=== PATIENT | male | born 1945 | race Caucasian/White ===

== ENCOUNTER 2020-05-29 | Inpatient (IN) | payer OTHER ==
[~2020-05-29] VITALS: Ht 180.3 cm; Wt 100.7 kg
--- NOTE | ~2020-05-29 | HC ---
[facility] [place] [address] CONSULTATION Name: JOSEP CRAFT Room #: 355-P [facility] IN M.R.#: [id number] Admission: 05/29/20 Attend Phys: Johanna Beavers Discharge: Date of : 43 Report #: [id number] THIS REPORT FOR: cc: Deepak Kearney,Inocencio Colbert MD ~ DATE OF SERVICE: 05/30/2020 WOUND CARE CONSULTATION PERSONAL PHYSICIAN: Deepak Kearney DO CHIEF COMPLAINT: Right foot wound. HISTORY OF PRESENT ILLNESS: This is a 74-year-old white male who is admitted for recent CVA and atrial fibrillation. Upon admission, the patient was noted to have a right foot wound, which was necrotic. We have been asked to care for this time. The patient himself is a poor historian and recently was diagnosed with COVID-19 pneumonia. The patient has known history of osteomyelitis of the right foot, is currently on IV antibiotics for this. Nursing staff deny any other associated wounds. PAST MEDICAL HISTORY: Significant for COVID-19 pneumonia, atrial fibrillation, chronic ulcer to the right foot with known osteomyelitis, hypertension, diabetes, hyperlipidemia, dementia. CURRENT MEDICATIONS: Multiple, I reviewed the patient's medication list. DRUG ALLERGIES: None. SOCIAL HISTORY: The patient resides in a care facility. FAMILY HISTORY AND REVIEW OF SYSTEMS: Unobtainable because of the patient's altered mental status. PHYSICAL EXAMINATION: VITAL SIGNS: Stable. The patient is afebrile. GENERAL: This is an alert and oriented x 1 person, but not place or time, male who is in no acute distress. HEENT: Normocephalic, atraumatic. Mucous membranes are dry. Pupils are round. Sclerae are white. NECK: Without JVD. LUNGS: Diminished breath sounds heard throughout. HEART: Irregularly irregular. [facility] [address] [place] [address] CONSULTATION Name: JOSEP CRAFT Room #: 355-P [facility] IN M.R.#: [id number] Admission: 05/29/20 Attend Phys: Johanna Beavers Discharge: Date of : 43 Report #: [id number] ABDOMEN: Soft, nontender. EXTREMITIES: The patient moves all extremities without difficulty. Evaluation of right foot reveals a black eschar, which is intact with minimal brownish drainage with mild odor. NEUROLOGIC: Cranial nerves 2-12 grossly intact. Motor and sensory are grossly intact. LABORATORY DATA: White count 6.9, hemoglobin 13.8, albumin 2.0. IMPRESSION: 1. Chronic ulcer, right foot with underlying osteomyelitis. 2. Diabetes mellitus. 3. Protein-calorie malnutrition -- severe with albumin 2.0. 4. Generalized debility. 5. COVID-19 infection. PLAN: At this time, we will start Dakin's wet to dry dressings to the right foot covered with ABD changes daily. We will attempt to maximize the patient's oral protein supplementation for healing. We will utilize physical and occupational therapy as able. This patient is able to for strengthening. We will continue all his other current medications at this time. By: 1050 50 Inocencio Benito MD /nt
--- NOTE | ~2020-05-29 | HC ---
[facility] [place] [place] [address] CONSULTATION Name: JOSEP CRAFT Room #: 355-P ADM IN M.R.#: [id number] Admission: 05/29/20 Attend Phys: Johanna Beavers Discharge: Date of : 43 Report #: [id number] THIS REPORT FOR: cc: Deepak Kearney,Naren Sears MD ~ DATE OF SERVICE: 05/29/2020 HISTORY OF PRESENT ILLNESS: This is a 74-year-old male patient who is unable to provide any history at all. There is no number identifying in the computer which I can contact. I talked to the nurse looking after this patient and reviewed the patient's records. The records indicate that the patient was last normal at 6:00 p.m. He was brought to the Emergency Room. A routine neurology consult was put in and the patient was seen a few minutes ago. Review of the records indicated that this patient had CT angiogram as well as carotid Doppler. Carotid Doppler was unremarkable, but CT angiogram showed some stenosis at the skull base but ____ apparently an embolus. There is no abrupt cut-off. CT perfusion was unremarkable. The patient's hoopa of Little is patent. REVIEW OF SYSTEMS: A 14-point review of system was carried out in this patient from the records. It looks like the patient has atrial fibrillation. I do not know if he was on any anti-thrombotic treatment. As per record, the patient is on Xarelto in the hospital. His reported medication from snf also mentioned Xarelto as well as Plavix as his medication. He also is on benazepril and I suspect he has dementia. In fact, he is on a combination of donepezil and Plavix. One of the reported medication is Seroquel, I do not know why he is on but I suspect he may have behavior problem. His chest x-ray indicates pneumonia. This is a relevant 14-point review of system I can get. He also appeared to have a history of cerebrovascular accident. That is all I can get. PAST MEDICAL HISTORY: From the record, it looks like he has a history of dementia. FAMILY HISTORY: Unavailable. SOCIAL HISTORY: He looks like he is in a snf. PHYSICAL EXAMINATION: Very limited. He does not open his eyes. Apparently, this is a change in his mental condition. He did not follow any simple commands for me and he did not say a single word for me. I cannot tell about the sensation. He cannot do the cerebellar sign or do the fundus examination. He is a very well-developed individual. He does not appear to have any edema, [facility] [address] [place] [address] CONSULTATION Name: JOSEP CRAFT Room #: 355-P ADM IN M.R.#: [id number] Admission: 05/29/20 Attend Phys: Johanna Beavers Discharge: Date of : 43 Report #: [id number] cyanosis or jaundice. Blood pressure is 129/40, respirations 27, pulse is 72, temperature is 99.9, platelet count is 134. IMAGING: He did have a CT angiography and that was reviewed. IMPRESSION: Very difficult to form in this patient and very difficult to distinguish between encephalopathy versus left hemispheric cerebrovascular accident. He does have a carotid stenosis on the left side and he is predisposed to the left hemispheric CVA, which will cause similar symptoms but he is on Xarelto, which will be at least protected from the cardioembolic stroke. The only way to distinguish is by doing an MRI, which is scheduled. I think we need to find a durable [id number] to see how aggressive they want to be. His GFR is only 28 and he got contrast last night in the Emergency Room, it looks like. I will suggest either continuing fluid or consulting Nephrology in this patient because of that. Part of his symptom maybe because of encephalopathy caused by systemic infection. I do not know what the quality of the life he had before he came to the hospital and I hope we will be able to contact some family member and see how aggressive they want to be depending upon the quality of his life, I will see if MRI shows any stroke or not. Thank you very much for this referral and if you have any question, please feel free to contact me. By: [id number] Naren Tomlin MD /nt
[2020-05-29 00:02] VITALS: BP 104/59
[2020-05-29] MEDS ORDERED: ATENOLOL 25 MG25 M1 PO (00:18)
[2020-05-29] MEDS ORDERED: VITAMIN C250 MG PO (00:18)
[2020-05-29] MEDS ORDERED: AZITHROMYCIN500 MG PO (00:19)
[2020-05-29] MEDS ORDERED: COLACE100 MG PO (00:20)
[2020-05-29] MEDS ORDERED: CYANOCOBALAMIN PO (00:21)
[2020-05-29] MEDS ORDERED: DEXAMETHASONE6 MG PO (00:22)
[2020-05-29] MEDS ORDERED: ARICEPT10 M1 PO (00:22)
[2020-05-29] MEDS ORDERED: FLOMAX0.4 MG PO (00:23)
[2020-05-29] MEDS ORDERED: FIBERCON PO (00:23)
[2020-05-29] MEDS ORDERED: LANTUS SUBQ (00:24)
[2020-05-29] MEDS ORDERED: GUAIFENESIN ER PO (00:24)
[2020-05-29] MEDS ORDERED: NAMENDA 5 MG TAB5 M1 PO (00:25)
[2020-05-29] MEDS ORDERED: METFORMIN HCL500 M3 PO (00:25)
[2020-05-29] MEDS ORDERED: MULTIPLE VITAM1 EAC2 PO (00:25)
[2020-05-29] MEDS ORDERED: NORTRIPTYLINE H10 M1 PO (00:26)
[2020-05-29] MEDS ORDERED: NOVOLOG100 UNIT/M SUBQ (00:27)
[2020-05-29] MEDS ORDERED: PEPCID20 MG PO (00:28)
[2020-05-29] MEDS ORDERED: ZOSYN 3.373.375 GM/1 IV (00:29)
[2020-05-29] MEDS ORDERED: PLAVIX 75 MG TA75 MG PO (00:29)
[2020-05-29] MEDS ORDERED: PROAIR INH (00:29)
[2020-05-29] MEDS ORDERED: QUETIAPINE FUMA25 MG PO (00:30)
[2020-05-29] MEDS ORDERED: XARELTO20 MG PO (00:30)
[2020-05-29] MEDS ORDERED: FLORASTOR250 MG PO (00:31)
[2020-05-29] MEDS ORDERED: SIMVASTATIN80 MG PO (00:32)
[2020-05-29] MEDS ORDERED: SODIUM CHLORIDE IV (00:33)
[2020-05-29] MEDS ORDERED: TYLENOL325 MG PO (00:34)
[2020-05-29 00:35] LABS: ABSOLUTE NEUTROPHILS 3.2 thou/uL (1.4-8.2); BASOPHILS 0.5 % (0.0-2.0); EOSINOPHILS 0.2 % (0.0-3.0); HEMATOCRIT 44.2 % (42.0-52.0); HEMOGLOBIN 14.4 gm/dL (14.0-18.0); LYMPHOCYTES 11.6 % (24.0-44.0); MCH 31.1 pg (26.0-34.0); MCHC 32.6 g/dL (28.0-37.0); MCV 95.4 fL (80.0-100.0); MONOCYTES 7.7 % (1.0-8.0); PLATELET COUNT 134 thou/uL (150-400); RBC 4.63 mil/uL (4.50-6.00); RDW 13.8 % (10.5-14.5)
[2020-05-29 00:36] LABS: CALCIUM 9.1 mg/dL (8.5-10.1); CREATININE 2.3 mg/dL (0.7-1.3); POTASSIUM 4.2 mmol/L (3.5-5.1)
[2020-05-29 00:42] LABS: ALBUMIN 2.3 g/dL (3.4-5.0); DIRECT BILIRUBIN 0.1 mg/dL (<0.1-0.2); TOTAL BILIRUBIN 0.3 mg/dL (0.2-1.0); TOTAL PROTEIN 7.8 g/dL (6.4-8.2)
[2020-05-29 00:42] LABS: APTT 33.6 Seconds (24.5-32.8); INR 1.1; PROTIME 11.5 Seconds (9.3-11.4)
[2020-05-29 00:56] LABS: BE(vivo) -3.3 mmol/L (-2 to +3); HCO3 22.9 mmol/L (22.0-26.0); PCO2 45.2 mmHg (35.0-45.0); PO2 101.2 mmHg (80.0-100.0); pH 7.322 (7.360-7.450); sO2 97.2 % (92.0-98.0)
[2020-05-29 01:39] LABS: URINE BILIRUBIN NEGATIVE (Negative); URINE BLOOD 2+ (Negative); URINE CLARITY CLOUDY; URINE COLOR YELLOW; URINE GLUCOSE-RANDOM* 2+ (Negative); URINE KETONES NEGATIVE (Negative); URINE LEUKOCYTES-REFLEX NEGATIVE (Negative); URINE NITRITE-REFLEX NEGATIVE (Negative); URINE PROTEIN (DIPSTICK) 2+ (Negative); URINE SPECIFIC GRAVITY >= 1.030 (1.005-1.035); URINE UROBILINOGEN 0.2 E.U./dl (0.2-1.0)
[2020-05-29 01:59] LABS: BACTERIA-REFLEX 1-9 Few /HPF (None Seen); SQUAMOUS 4-10 Moderate /LPF (0-3); URINE RBC 3-10 Few /HPF (0-2); URINE WBC-REFLEX 0-5 Rare /HPF (0-5)
[2020-05-29 02:00] LABS: HYALINE CASTS 0-3 Few /LPF (None Seen); MUCUS 4-6 Moderate strn/LPF (None Seen); URIC ACID CRYSTALS >10 Many /LPF (None Seen)
[2020-05-29 10:50] VITALS: BP 129/40
[2020-05-29 11:20] VITALS: BP 129/40
--- NOTE | 2020-05-29 11:42 | EKG ---
[facility] [place] [address] ELECTROCARDIOGRAM REPORT Name: JOSEP CRAFT Room #: 170-11 ADM IN M.R.#: [id number] Admission: 05/29/20 Attend Phys: Johanna Beavers Discharge: Date of : 43 Report #: [id number] THIS REPORT FOR: cc: Deepak Kearney,Oneal Barton MD MERGED WITH [facility] ~ THIS REPORT FOR: //name// [facility] ED Test Date: 2020-05-29 Test Time: 00:11:39 Pat Name: JOSEP CRAFT Department: Room: 170 Gender: M Library Technician: GISSEL : 1945 Requested By: Nena Arana Order Number: [id number] MD: Oneal Higgins Measurements Intervals [place] Rate: 121 P: SD: QRS: 21 QRSD: 138 T: 146 QT: 300 QTc: 426 Interpretive Statements AFIB Nonspecific intraventricular conduction delay Repol abnrm suggests ischemia, diffuse leads Minimal ST elevation, inferior leads No previous ECG available for comparison Electronically Signed On 05-29-2020 11:42:35 STRATEGIC SOURCING MANAGER by Oneal Higgins [email or web address] <ELECTRONICALLY SIGNED> By: Oneal Higgins MD, FACC 05/29/20 1142 001 0011 Oneal Higgins MD, FAC /EPI
[2020-05-29 12:00] VITALS: BP 130/60
[2020-05-29 15:00] VITALS: BP 120/66
--- NOTE | 2020-05-29 18:30 | NUR ---
PT ADIMIIED DROM ER FOR POSITIVE COVID AND SOB, A-FIB , PT IS SLEEPING AND PT ONLY OPENS HIS EYES BY VOICE , PT CAN NOT FOLLOW COMMANDS, PT IS ON O2 3L/MIN/NC, PT'S VS ARE STABLE, PT NEEEDS HELP CHANGE POSITION ,PT'S WOUND CARE HAS DONE, PT'S HEAD CT AND MRI RESULTS DO NOT SHOW STROKE AT THIS TIME, PT HAS STARTED IV ABX .
[2020-05-29 19:30] VITALS: BP 139/58
[2020-05-30 01:35] VITALS: BP 108/94
--- NOTE | 2020-05-30 02:01 | NUR ---
PT CONFUSED, LETHARGIC AT START OF SHIFT BUT EVENTUALLY AWAKENED TO ANSWER NIH QUESTIONS. HE WAS UNABLE TO FOLLOW SOME STEPS. NOTIFED [facility] CNA OF ABNORMALS AND FACIAL DROOP. NO ORDERES GIVEM. SHE REVIEWED PT'S CHART MRI, CT ETC. PRESENTLY HE HAS BEEN ALERT AND AWAKE EACH TIME I ENTERED ROOM AND WAS ABLE TO TALK.
[2020-05-30 04:06] LABS: GLYCOHEMOGLOBIN (HGB A1C) 8.8 % (4.8-5.6)
[2020-05-30 04:38] VITALS: BP 157/92
[2020-05-30 06:08] LABS: HEMOGLOBIN 13.8 gm/dL (14.0-18.0); MCH 31.8 pg (26.0-34.0); MCHC 32.8 g/dL (28.0-37.0); RBC 4.33 mil/uL (4.50-6.00); RDW 14.1 % (10.5-14.5); WBC 6.9 thou/uL (4.0-11.0)
[2020-05-30 06:36] LABS: ANION GAP 15 mmol/L (7-16); BUN 47 mg/dL (7-18); CALCIUM 8.6 mg/dL (8.5-10.1); CHLORIDE 109 mmol/L (98-107); CHOLESTEROL 128 mg/dL (<200); CO2 21 mmol/L (21-32); GLUCOSE 300 mg/dL (74-106); HDL CHOLESTEROL 26 mg/dL (>40); LDL CHOLESTEROL 82 mg/dL (<100); POTASSIUM 4.3 mmol/L (3.5-5.1); SODIUM 145 mmol/L (136-145); TC:HDL 4.9 Ratio (Not establshd); TRIGLYCERIDE 104 mg/dL (<150); VLDL 21 mg/dL (<40)
[2020-05-30 06:38] LABS: CREATININE 3.4 mg/dL (0.7-1.3); SERUM ASSESSMENT Clear
--- NOTE | 2020-05-30 06:41 | NUR ---
PT CONFUSED BUT NIH SCORE IS SLIGHTLY BETTER THIS AM. HE IS MORE ALERT. NS INFUSING AT 100 ML HR.
--- NOTE | 2020-05-30 14:19 | NUR ---
INITIAL ASSESSMENT: BRETT reviewed chart and spoke with nursing and attending physician. Pt was admitted from [facility] due to afib with RVR and possible CVA. Pt placed in Enhanced Isolation due to COVID-19. Pt had positive test at the nursing facility on 05/28. Pt is afebrile and on 3L of O2. Pt is on IV abx and IV steroids. ID consulted. BRETT spoke with pt's sister/DPOA, Janette, via phone. Introduced role of BRETT. Pt has been at [facility] for about two weeks. He was discharged from [facility] to [place] for post-acute care. Pt normally lives alone and has been independent with ADLs. [facility] Pt goes to the [place] for primary care and sees Dr. Martínez at the [facility]. Pt had recent toe amputation and wound care procedures. Pt has been ambulatory up until recently. Pt's sister states that pt will not return to [facility] when discharged. Pt's sister would like for pt to go to a [place] contracted facility. BRETT explained that facilities will need to be checked if they are taking COVID pts. Pt's sister verbalized understanding and states that she was told by the [facility] RN ([facility]oxana) that [facility] may be an option. Pt's sister requests a call from pt's RN and attending physician for an update. BRETT spoke with nursing and provided Janette's contact info to attending physician. BRETT discussed [facility] COVID Communication Plan and sent letter to Janette via email: [email or web address] for review. BRETT placed call to [facility] and spoke with [facility]. They are not accepting any new admissions at this time. No weekend discharge planned. BRETT is following to assist as needed with discharge planning.
--- NOTE | 2020-05-30 15:05 | HC ---
[facility] [place] [address] CONSULTATION Name: JOSEP CRAFT Room #: 355-P ADM IN M.R.#: [id number] Admission: 05/29/20 Attend Phys: Johanna Beavers Discharge: Date of : 43 Report #: [id number] THIS REPORT FOR: cc: Deepak Kearney,Dontae Fair MD ~ DATE OF SERVICE: 05/29/2020 INFECTIOUS DISEASE CONSULTATION ATTENDING PHYSICIAN: Dr. Beavers. REASON FOR EVALUATION: COVID-19 infection. HISTORY OF PRESENT ILLNESS: The patient examined. This is a 74-year-old gentleman with history of previous stroke, who resides in a facility, who was previously noted to be exposed to COVID-19 roughly 10 days ago, has been on p.o. Decadron. He had complained of respiratory distress. He was found to be encephalopathic and nonverbal. Due to concerns about COVID pneumonitis, he was referred to the Emergency Room. During evaluation, he was found to have creatinine of 2.3. Lactic acid was normal range of 1.8. ABGs showed pH 7.322, pCO2 of 45.2 and pO2 of 101.2 on 2 liters. Chest x-ray showed generalized cardiomegaly, perihilar opacities. There is question of atypical pneumonia. CTA of head and CT stroke protocol were otherwise unrevealing for any acute process. TSH was borderline elevated. Carotids did show some stenosis, although not felt to be significant. Additional history, apparently, he was diagnosed with osteomyelitis involving his foot. He has been on systemic antibiotics with Zosyn. He is really unable to give any history as we cannot arouse him. He is scheduled to undergo MRI of the brain to further evaluate possible stroke. He was empirically started on vancomycin in addition to continue the piperacillin and tazobactam. ALLERGIES: None known. CURRENT MEDICATIONS: Vancomycin, rivaroxaban, diltiazem, famotidine, dexamethasone, aspirin and Zosyn. PAST MEDICAL HISTORY: Includes the above noted stroke, history of hypertension, hyperlipidemia, diabetes mellitus, atrial fibrillation, depression. SOCIAL AND FAMILY HISTORY: Unobtainable. REVIEW OF SYSTEMS: Unobtainable. [facility] [address] [place] [address] CONSULTATION Name: JOSEP CRAFT Room #: 355-P [facility] IN ..#: [id number] Admission: 05/29/20 Attend Phys: Johanna Beavers Discharge: Date of : 43 Report #: [id number] PHYSICAL EXAMINATION: GENERAL: He appears reasonably well nourished. He is essentially not arousable at this point. He ____ with fairly vigorous stimuli. Does have supplemental oxygen in place per nasal cannula. VITAL SIGNS: Temperature 99.9, pulse 72, respirations 27, blood pressure is 129/40. SKIN: Warm, dry. No rashes. HEENT: Normocephalic. Extraocular muscles intact apparently. NECK: Supple. LUNGS: Few scattered coarse breath sounds. HEART: Distant, regular. I do not appreciate a murmur. ABDOMEN: Soft, mildly obese, nontender. GENITOURINARY AND RECTAL: Deferred. LABORATORY DATA: Sed rate of 95. Procalcitonin 0.34. Glucose of 225. TSH of 5.217. CRP of 164.4. CT stroke protocol, moderate stenosis near genu of the skull base, left carotid at the medial anterior aspect of the carotid canal. No other significant abnormality. Chest x-ray as described above. Urinalysis, 0-5 white cells. ABGs: pH 7.322, pCO2 of 45.2, pO2 of 101.2. ASSESSMENT: 1. COVID-19 infection. 2. Apparent chronic osteomyelitis involving his foot. 3. Encephalopathy, question of stroke. 4. Diabetes mellitus. 5. Depression. 6. Hypertension. PLAN: We will continue empiric antibacterials at this point. Try to obtain more information, noted MRI should help us to further define whether he has had a stroke. He is in renal failure ____ this is an acute issue or not, may try to dose with remdesivir, discussed with pharmacy. Continue corticosteroids. We will add vitamins. Overall, his prognosis appears quite guarded. <ELECTRONICALLY SIGNED> By: Dotnae Warren MD 05/30/20 1505 [id number] Dontae Warren MD /nt
[2020-05-30 16:00] VITALS: BP 136/62
--- NOTE | 2020-05-30 19:30 | NUR ---
PATIENT ALERT TO SELF. CONFUSED. TOLERATED DIET AND LIQUID. INCONTINUE BOWLE. DRESSING CHANGED PER ORDER. AFEBRILE. VSS.2OOML UNRINE ON THIS SHIFT. NO SLURR SPEECH. SLOWLY TOWARDS POC GOALS.
[2020-05-30 19:52] VITALS: BP 158/78
[2020-05-31 03:10] VITALS: BP 144/87
[2020-05-31 07:13] LABS: ABSOLUTE NEUTROPHILS 9.9 thou/uL (1.4-8.2); HEMATOCRIT 34.9 % (42.0-52.0); LYMPHOCYTES 3.3 % (24.0-44.0); MCH 31.2 pg (26.0-34.0); MCHC 32.4 g/dL (28.0-37.0); MCV 96.1 fL (80.0-100.0); MONOCYTES 4.4 % (1.0-8.0); PLATELET COUNT 115 thou/uL (150-400); POLYS 92.3 % (36.0-66.0); RBC 3.64 mil/uL (4.50-6.00); RDW 14.2 % (10.5-14.5); WBC 10.8 thou/uL (4.0-11.0)
[2020-05-31 07:14] LABS: HEMOGLOBIN 11.3 gm/dL (14.0-18.0)
[2020-05-31 07:45] LABS: CALCIUM 8.7 mg/dL (8.5-10.1); CREATININE 3.9 mg/dL (0.7-1.3); PHOSPHORUS 3.5 mg/dL (2.5-4.9); POTASSIUM 3.8 mmol/L (3.5-5.1)
--- NOTE | 2020-05-31 08:27 | NUR ---
PROGRESS PT ALERT BUT CONFUSED. VIEIRA CATH IN PLACE BAG WAS LEAKING SO BAG WAS REPLACED. PT HAD 3 SMALL DARK TARRY STOOLS BUTTOCKS RED BRUISED LOOKING AND VERY TENDER TOTOUCH ZGARD APPLIED AND PT REPOSITIONED FREQUENTLY. TOLERATING THIN LIQUIDS WITH SUPERVISION. IVF'S AND IV ABT'S CONTINUE ORDERED. PT HAS VIEIRA DRAINING ADEQUATE AMOUNT OF URINE. VSS CONTINUE POC.
[2020-05-31 08:29] LABS: URINE CREATININE-RANDOM* 92.7 mg/dL
[2020-05-31 08:40] LABS: PROT/CREAT RATIO 1.7; URINE CREATININE-RANDOM* 91.6 mg/dL; URINE PROTEIN-RANDOM* 157.3 mg/dL (<11.9)
[2020-05-31 08:49] VITALS: BP 119/79
[2020-05-31 12:50] VITALS: BP 137/80
[2020-05-31 18:14] VITALS: BP 125/76
--- NOTE | 2020-05-31 18:45 | NUR ---
ASSUUMED PATIENT CARE AT 0700. ALERT TO SELF. CONFUSED. PULLING LINES OFF. INCREASED URNINE OUTPUT. SOB ON 3L. NOT TOWARDS POC GOALS.
[2020-05-31 20:59] VITALS: BP 144/88
[2020-06-01 00:35] VITALS: BP 141/74
[2020-06-01 05:09] LABS: ABSOLUTE NEUTROPHILS 11.2 thou/uL (1.4-8.2); BASOPHILS 0.1 % (0.0-2.0); HEMATOCRIT 39.3 % (42.0-52.0); HEMOGLOBIN 12.8 gm/dL (14.0-18.0); LYMPHOCYTES 3.1 % (24.0-44.0); MCH 31.2 pg (26.0-34.0); MCHC 32.5 g/dL (28.0-37.0); MONOCYTES 4.1 % (1.0-8.0); PLATELET COUNT 121 thou/uL (150-400); POLYS 92.7 % (36.0-66.0); RBC 4.09 mil/uL (4.50-6.00); WBC 12.1 thou/uL (4.0-11.0)
[2020-06-01 05:19] VITALS: BP 130/67
[2020-06-01 05:31] LABS: ALBUMIN 1.9 g/dL (3.4-5.0); CREATININE 3.5 mg/dL (0.7-1.3); MAGNESIUM 1.8 mg/dL (1.8-2.4); PHOSPHORUS 2.8 mg/dL (2.5-4.9); POTASSIUM 3.5 mmol/L (3.5-5.1); TOTAL BILIRUBIN 0.3 mg/dL (0.2-1.0); TOTAL PROTEIN 6.6 g/dL (6.4-8.2)
--- NOTE | 2020-06-01 06:39 | NUR ---
PT CONFUSED. PULLS OFF HR MONITOR AND O2 FREQUENTLY. LUNGS DIMINISHED AND COARSE SLIGHTLY LABORED AT TIMES ON O23LNC. SATS WNL. BUN CR IMPROVING. IVF INFUSING BETTY. BED DOWN CALL LIGHT IN REACH. BED ALARM ON. BUITOCK WOUNDS REDDENED AND BLACK. EXCORIATED. APPLIED ZGARD AND CLOTRIMAZOLE 3X TONIGHT.
[2020-06-01 09:07] VITALS: BP 146/80
[2020-06-01 12:25] VITALS: BP 166/89
--- NOTE | 2020-06-01 14:16 | NUR ---
ASSUMED PATIENT CARE AT 0700. ALERT. CONFUSED LABOR BREATHING . VOID 800 AFTER 60MG IV LASIX GIVEN. MORE LETHARGIC. DR SALEEM NOTIFIED, WILL DO ABG. KEEP MONITOR.
[2020-06-01 17:13] VITALS: BP 148/83
[2020-06-01 17:32] LABS: BE(vivo) -7.9 mmol/L (-2 to +3); HCO3 17.6 mmol/L (22.0-26.0); PCO2 36.4 mmHg (35.0-45.0); sO2 85.3 % (92.0-98.0)
[2020-06-01 17:33] LABS: PO2 54.1 mmHg (80.0-100.0); pH 7.303 (7.360-7.450)
[2020-06-01 21:02] VITALS: BP 129/55
[2020-06-02 04:38] VITALS: BP 149/74
[2020-06-02 05:54] LABS: ABSOLUTE NEUTROPHILS 11.3 thou/uL (1.4-8.2); HEMATOCRIT 40.3 % (42.0-52.0); HEMOGLOBIN 13.3 gm/dL (14.0-18.0); LYMPHOCYTES 3.4 % (24.0-44.0); MCH 31.3 pg (26.0-34.0); MCHC 32.9 g/dL (28.0-37.0); PLATELET COUNT 130 thou/uL (150-400); POLYS 93.6 % (36.0-66.0); RBC 4.24 mil/uL (4.50-6.00); RDW 13.9 % (10.5-14.5)
[2020-06-02 06:37] LABS: CALCIUM 8.6 mg/dL (8.5-10.1); MAGNESIUM 1.9 mg/dL (1.8-2.4); PHOSPHORUS 2.5 mg/dL (2.5-4.9); POTASSIUM 3.7 mmol/L (3.5-5.1); TOTAL BILIRUBIN 0.4 mg/dL (0.2-1.0); TOTAL PROTEIN 7.1 g/dL (6.4-8.2)
--- NOTE | 2020-06-02 06:42 | NUR ---
PT WAS PLACED ON BIPAP PRIOR TO START OF EVENING SHIFT. PT SLEPT UNTIL ABOUT 0330 AND STARTED PULLING AT MASK AND REMOVING IT. PT WAS PLACED BACK ON 4L NC AND 02 SATS WERE 96%. LABS PULLED FROM PICC. PT HAD BM OVERNIGHT.
[2020-06-02 08:55] VITALS: BP 100/72
[2020-06-02 12:00] VITALS: BP 130/53
[2020-06-02 12:58] LABS: BE(vivo) -3.8 mmol/L (-2 to +3); HCO3 22.8 mmol/L (22.0-26.0); PCO2 46.8 mmHg (35.0-45.0); PO2 59.5 mmHg (80.0-100.0); sO2 88.2 % (92.0-98.0)
[2020-06-02 12:59] LABS: pH 7.305 (7.360-7.450)
[2020-06-02 16:00] VITALS: BP 143/71
--- NOTE | 2020-06-02 16:18 | NUR ---
ASSUMED PATIENT CARE AT 0700. PATIENT ON 4L/NC. LABOR BREATHING. AWAKE. OPAN EYE TO VOICE IN AM. REPORTED ABG TO DR LI. ASSISTED FACETIME TO PATIENT'S SISTER. PATIENT IS NO CODE NOW. NOT EATTING. BS DORP. NOT TOWARDS POC GOALS.
--- NOTE | 2020-06-02 16:20 | NUR ---
BRETT reviewed chart and spoke with nursing and attending physician. Pt remains in Enhanced Isolation due to COVID-19. Pt is afebrile and on 5L of O2. Pt is on IV abx and IV steroids. BRETT spoke with Roxana at the [facility] regarding pt's discharge. Per Roxana, pt will need a new authorization for a new facility. BRETT spoke with BRETT Sosa at the [facility]. Pt is high service connected and the [place] is paying [place]'s skilled stay at [facility]. Leticia discussed alternate SNF options, however they are not accepting COVID-positive pts. The [place] is unable to establish a one-time contract with SNFs who are accepting COVID positive pts. BRETT spoke with pt's sister, Janette, via phone to provide update. Pt's sister to have Face Time call with pt this afternoon. Per Janette, pt's condition has declined over the weekend. BRETT is following to assist as needed with discharge planning.
--- NOTE | 2020-06-02 18:45 | NUR ---
ASSUMED PATIENT CARE AT 0700. PETIENT TOLERATED ON BIPAP 80% FIO2 SAT 95%. HAS GOOD APPETITE. DENIES PAIN. VSS. SLOWLY TOWARDS POC GOALS.
[2020-06-02 20:20] VITALS: BP 167/119
[2020-06-03 03:49] VITALS: BP 154/83
--- NOTE | 2020-06-03 06:41 | NUR ---
PT ON BIPAP FROM [id number] DUE TO LABORED BREATHING. PT RECEIVED 1X DOSE OF HALIDOL DUE TO TRYING TO REMOVE MEDICAL EQUIPMENT. AFTER 399 PT BACK ON 4L. PT REMOVES TELE PATCHES ALSO.
[2020-06-03 07:14] VITALS: BP 147/91
--- NOTE | 2020-06-03 09:32 | NUR ---
Pt with right foot osteomyelitis. Chart reviewed, COVID +, requires bipap and is no code status. Possible need comfort care. On puree, nectar liquid diet, po intake is poor. Receives oral supplement ensure pudding on diet. Defer further nutrition eval unless consulted.
[2020-06-03 11:09] VITALS: BP 146/87
[2020-06-03 12:18] LABS: URINE BILIRUBIN NEGATIVE (Negative); URINE BLOOD 3+ (Negative); URINE CLARITY CLOUDY; URINE COLOR BROWN; URINE GLUCOSE-RANDOM* NEGATIVE (Negative); URINE KETONES NEGATIVE (Negative); URINE LEUKOCYTES-REFLEX TRACE (Negative); URINE NITRITE-REFLEX NEGATIVE (Negative); URINE PROTEIN (DIPSTICK) 2+ (Negative); URINE UROBILINOGEN 0.2 E.U./dl (0.2-1.0)
[2020-06-03 12:28] LABS: SQUAMOUS 0-3 Few /LPF (0-3)
[2020-06-03 12:29] LABS: MUCUS 0-3 Light strn/LPF (None Seen); URIC ACID CRYSTALS >10 Many /LPF (None Seen); URINE RBC >20 Many /HPF (0-2)
[2020-06-03 12:30] LABS: CASTS None Seen /LPF (None Seen); URINE WBC-REFLEX 0-5 Rare /HPF (0-5)
[2020-06-03 12:31] LABS: BACTERIA-REFLEX 1-9 Few /HPF (None Seen)
--- NOTE | 2020-06-03 14:43 | NUR ---
BRETT reviewed chart and spoke with nursing and attending physician. Pt remains in Enhanced Isolation due to COVID-19. Pt is afebrile and on 5L of O2. Pt has required bipap support. Pt is on IV abx. Pt is now a DNR. BRETT notified by [facility] RN that pt could tranfser to the [facility] if family would prefer pt being at the [place]. BRETT spoke with pt's sister, Janette, via phone. Janette states she spoke with Roxana at the [facility] earlier today. Janette would prefer pt remain at [facility] and not transfer due to his condition. BRETT discussed with attending physician. Lengthy discussion with pt's sister regarding plan of care and potential discharge plan. Pt's sister states that she would like to see how pt does over the next couple of days before deciding plan of care. Pt will not be returning to [facility]. Alternate options discussed with pt's sister. Pt's sister was able to Face Time with pt yesterday. Pt's brother, Alonzo, would like to Face Time if possible, as Alonzo has not seen pt for about a year. BRETT notified pt's nurse. BRETT is following to assist as needed with discharge planning.
[2020-06-03 15:18] VITALS: BP 175/110
[2020-06-03 17:56] LABS: ALBUMIN 1.9 g/dL (3.4-5.0); CALCIUM 9.3 mg/dL (8.5-10.1); CREATININE 2.4 mg/dL (0.7-1.3); PHOSPHORUS 2.6 mg/dL (2.5-4.9); POTASSIUM 4.1 mmol/L (3.5-5.1)
--- NOTE | 2020-06-03 18:17 | NUR ---
ASSUMED PATIENT CARE AT 0700. ALERT. CONFUSED RESRTLESS. ASSISTED FACE TIME WITH BROTHER. WOUND CARE PER ORDER. SLOWLY TOWARDS POC GOALS.
[2020-06-03 19:55] VITALS: BP 177/110
[2020-06-04 02:59] VITALS: BP 112/82
--- NOTE | 2020-06-04 05:59 | NUR ---
PT SPEAKING MORE CLEARLY EARLY ON SHIFT. PT THEM REMOVING MEDICAL EQUIPMENT MULTIPLE TIMES. REDIRECTION NOT HELPING. SEROQUEL GIVEN WITHOUT ANY RESULT. 2.5 HALIDOL GIVEN AND PT SLEPT UNTIL 0400. PT TRIED TO GET OUT OF BED AT 0400. COMPLETE BED CHANGE DONE THEN. IVPB ZOSIN GIVEN. VIEIRA IN PLACE WITH 900ML OUT.
[2020-06-04 07:40] VITALS: BP 144/90
[2020-06-04 11:31] VITALS: BP 159/76
--- NOTE | 2020-06-04 16:12 | NUR ---
BRETT reviewed chart and spoke with nursing and attending physician. Pt remains in Enhanced Isolation due to COVID-19. Pt is afebrile and on 4L of O2. Pt is on IV abx. Pt's sister to make decision about possibly initiating comfort care if pt's condition does not improve. Pt's nurse was assisting with Face Time call this afternoon. BRETT spoke with TIFFANIE Schmidt at the [facility] ([phone]) to provide update. BRETT Cadena ([phone]) is out of the office today and tomorrow. BRETT left voice message for BRETT Durand ([phone]. [phone]) to provide update. Requesting call back with options for [place] longterm placement if pt is stable for discharge. BRETT is following to assist as needed with discharge planning.
[2020-06-04 17:09] VITALS: BP 176/104
--- NOTE | 2020-06-04 18:17 | NUR ---
assumed care of pt at 0700. pt oriented to self, forgetful, wanting to go home. frequently pulling off equipment and oxygen. incontinent of stool. adequate urine output. remains on 4L NC. no plans for d/c at this time. danielam.
[2020-06-04 19:31] VITALS: BP 181/90
[2020-06-04 20:15] LABS: ALBUMIN 2.1 g/dL (3.4-5.0); CALCIUM 9.4 mg/dL (8.5-10.1); CREATININE 1.9 mg/dL (0.7-1.3); PHOSPHORUS 2.4 mg/dL (2.5-4.9); POTASSIUM 3.8 mmol/L (3.5-5.1)
[2020-06-05 04:03] VITALS: BP 148/72
[2020-06-05 08:27] VITALS: BP 139/79
[2020-06-05 12:12] VITALS: BP 14/66
[2020-06-05 13:33] VITALS: BP 144/66
[2020-06-05 15:27] VITALS: BP 143/95
--- NOTE | 2020-06-05 18:04 | NUR ---
ASSUMED PATIENT CARE AT 0700. AWAKE. LETHARGIC. NOT FLOLLOW COMMAND. NOT TOWAEDS POC GOALS.
[2020-06-05 20:46] VITALS: BP 141/63
--- NOTE | 2020-06-06 03:21 | NUR ---
ASSUMED CARE OF PT AT 1900HRS. PT IS ALERT BUT WITHDRAWN. FALL PRECAUTION IN PLACE. PT ON 4L O2 VIA NC INITIALLY AND NOW ON A VENTI MASK AT 50%. PT TURNED Q2-3H. VIEIRA IN PLACE AND AND PATIENT. PT NOT VERBAL THIS SHIFT BUT DOES FOLLOW SIMPLE COMMANDS. PT TOOK HS MEDS CRUSHED WITH APPLESAUCE. ABX TREATMENT CONTINUED. PT WAS ABLE TO GET COMFORTABLE AND SLEEP PART OF THE SHIFT. VSS AND WILL CONTINUE TO MONITOR.
[2020-06-06 04:43] VITALS: BP 117/57
[2020-06-06 07:20] VITALS: BP 154/101
--- NOTE | 2020-06-06 08:09 | NUR ---
ON-GOING ASSESSMENT: CM REVIEWED CHART AND SPOKE WITH ATTENDING. PT REMAINS IN ENHANCED ISOLATION DUE TO COVID 19. JAVAN SPOKE WITH PATIENTS SISTER USMAN WHO REPORTS SHE DOES NOT WANT PATIENT RETURNING AT ALL TO [facility] AND HAD A TERRIBLE EXPERIENCE BUT WOULD LIKE HIM TO GO SOMEWHERE FOR REHAB/SNF IF HE IS ABLE TO GET ANY STRONGER OR TOLERATE SNF. SHE STATES SHE WOULD LIKE TO TALK TO PHYSICIAN TO SEE IF HE IS A CANIDATE FOR SNF. SHE REPORTS IF PATIENT IS NEEDING HOSPICE HE LIVES ALONE AND SOMEONE IS NOT ABLE TO BE THERE WITH HIM 17/01. SHE REPORTS SHE IS UNSURE HIS CONDITION OR HOW SERIOUS IT IS IF HE NEEDS HOSPICE OR CAN DO SNF. SHE REQUEST TO SPEAK WITH DR. WEEKS. CM RELAYED INFORMATION AND CONTACT FOR PTS SISTER TO DR. WEEKS FOR HER TO CONTACT HER. SHE REPORTS IF HE IS A CANIDATE FOR SNF SHE [facility] WITH [facility] AND [facility]OULD [facility]BE CONSIDER [facility]. JAVAN SPOKE WITH RANGEL AT THE [facility] WHO REPORTS THEY DO HAVE A CONTACT WITH [facility] BUT THE [facility] WOULD HAVE TO APPROVE IT FIRST. SHE REQUEST INFORMATION BE FAXED TO THEM FOR REVIEW. CM FAXED CLINICAL TO [facility] [phone] ATTN: MELYSSA/YANNI FOR REVIEW. CM ALSO FAXED CLINICAL TO [facility] AND SPOKE WITH ADMISSIONS WHO STATES THEY WOULD REVIEW CLINICAL AND ARE ACCEPTING COVID POSTIVE RESIDENTS AT THIS TIME. JAVAN WILL CONTINUE TO FOLLOW.
[2020-06-06 11:11] VITALS: BP 177/74
--- NOTE | 2020-06-06 13:48 | NUR ---
ON-GOING ASSESSMENT: CM REVIEWED CHART AND SPOKE WITH ATTENDING WHO REPORTS PT IS NOT DOING WELL. CM RECEIVED A CALL FROM [facility] ASKING FOR UPDATE ON PT. [facility]. JAVAN REACHED OUT TO PATIENTS SISTER USMAN TO DISCUSS HIS CASE AND IF SHE IS WANTING HIM TO TRANSFER TO [facility]. SHE REPORTS SHE HAD A PLEASANT CONVERSATION WITH THE PHYSICIAN YESTERDAY AND THEY DICUSSED MAKING HIM COMFORT CARE AND SHE WAS TOLD HE COULD STAY HERE A FEW DAYS TO SEE HOW HE THEN DOES. SHE REPORTS SHE DOES NOT WANT HIM TO TRANSFER TO [facility] AT THIS TIME AND WANTS TO KEEP HIM HERE AND SEE HOW HE DOES THROUGH THE WEEKEND THEN MAY CONSIDER TRANSFER. CM NOTIFIED CM DIRECTOR. NO PLANS FOR WEEKEND DISCHARGE. CM WILL CONTINUE TO FOLLOW TO ASSIST NEEDED.
--- NOTE | 2020-06-06 17:50 | NUR ---
ASSUMED CARE OF PT AT 0700. PT ON VENTI MASK. DECREASED RESPONSIVENESS THROUGHOUT THE SHIFT. UNABLE TO TAKE PO MEDS. COMFORT CARE INITIATED BY PHYSICIAN. APPEARS COMFORTABLE. ADEQUATE URINE OUTPUT - OCCASIONAL FLUSHING NEEDED TO PREVENT CLOGGING. WCM.
[2020-06-07 05:41] VITALS: BP 140/53
--- NOTE | 2020-06-07 06:25 | NUR ---
continues on pulse ox. he is on 50% venti mask. bp holding steady. no signs of pain.
[2020-06-07 07:45] VITALS: BP 180/104
--- NOTE | 2020-06-07 16:29 | NUR ---
assumed care of pt at 0700. breathing comfortably w/ face mask. maria a kennedy respirations noted. morphine provided as needed for air hunger. adequate urine output.
[2020-06-07 20:00] VITALS: BP 144/95
--- NOTE | 2020-06-08 01:10 | NUR ---
PT ON COMFORT CARE. HR ELEVATED 120-130'S. RR TACYPNEIC IRREGULAR. PT DOES MOVE ARMS AT TIMES. OTHERWISE HE IS LETHARGIC AND NONVERBAL. DOES NOT FOLLOW COMMANDS. CONTINUING COMFORT MEASURES.
--- NOTE | 2020-06-08 07:30 | NUR ---
PT ON COMFORT CARE. RESPIRATIONS ARE SHALLOW. HR 133. 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 VIEIRA INTACT WITHONLY 100 ML NOTED THIS AM.
[2020-06-08 07:31] VITALS: BP 116/72
== END 2020-06-08 18:25 | DRG 871 ==
LOC: ER → 3W 03:43 → EROBS 03:43 → 3W 12:03
PROVIDERS: Emergency Medicine; Internal Medicine; Internal Medicine Nephrology; Internal Medicine Pulmonary Disease; Nurse Practitioner Family; Specialist; ADMIT Hospitalist; ATTEND Hospitalist
PROC: XW033E5 Introduction of Remdesivir Anti-infective into Peripheral Vein, Percutaneous Approach, New Technology Group 5 (ICD-10-PCS; principal; 2020-05-29)
PROC: 5A09357 Assistance with Respiratory Ventilation, Less than 24 Consecutive Hours, Continuous Positive Airway Pressure (ICD-10-PCS; 2020-06-01)
PROC: 5A09357 Assistance with Respiratory Ventilation, Less than 24 Consecutive Hours, Continuous Positive Airway Pressure (ICD-10-PCS; 2020-06-02)
PROC: 5A09357 Assistance with Respiratory Ventilation, Less than 24 Consecutive Hours, Continuous Positive Airway Pressure (ICD-10-PCS; 2020-06-03)
PROC: 5A09357 Assistance with Respiratory Ventilation, Less than 24 Consecutive Hours, Continuous Positive Airway Pressure (ICD-10-PCS; 2020-06-04)
PROC: 5A09357 Assistance with Respiratory Ventilation, Less than 24 Consecutive Hours, Continuous Positive Airway Pressure (ICD-10-PCS; 2020-06-05)
PROC: 5A09357 Assistance with Respiratory Ventilation, Less than 24 Consecutive Hours, Continuous Positive Airway Pressure (ICD-10-PCS; 2020-06-06)
DX: A41.89 Other specified sepsis (principal); L89.153 Pressure ulcer of sacral region, stage 3; U07.1 COVID-19; J96.01 Acute respiratory failure with hypoxia; G93.41 Metabolic encephalopathy; J12.89 Other viral pneumonia; N17.0 Acute kidney failure with tubular necrosis; E43 Unspecified severe protein-calorie malnutrition; I48.20 Chronic atrial fibrillation, unspecified; R47.01 Aphasia; E87.0 Hyperosmolality and hypernatremia; M86.8X7 Other osteomyelitis, ankle and foot; L97.419 Non-pressure chronic ulcer of right heel and midfoot with unspecified severity; E11.621 Type 2 diabetes mellitus with foot ulcer; Z66 Do not resuscitate; N18.9 Chronic kidney disease, unspecified; E86.0 Dehydration; Z51.5 Encounter for palliative care; I12.9 Hypertensive chronic kidney disease with stage 1 through stage 4 chronic kidney disease, or unspecified chronic kidney disease; E11.22 Type 2 diabetes mellitus with diabetic chronic kidney disease; F32.9 Major depressive disorder, single episode, unspecified; E78.5 Hyperlipidemia, unspecified; K21.9 Gastro-esophageal reflux disease without esophagitis; F03.90 Unspecified dementia, unspecified severity, without behavioral disturbance, psychotic disturbance, mood disturbance, and anxiety; N40.0 Benign prostatic hyperplasia without lower urinary tract symptoms; E66.01 Morbid (severe) obesity due to excess calories; D69.6 Thrombocytopenia, unspecified; R53.81 Other malaise; E87.8 Other disorders of electrolyte and fluid balance, not elsewhere classified; T36.8X5A Adverse effect of other systemic antibiotics, initial encounter; E11.69 Type 2 diabetes mellitus with other specified complication; Z79.01 Long term (current) use of anticoagulants; Z79.4 Long term (current) use of insulin; Z79.899 Other long term (current) drug therapy; Z86.73 Personal history of transient ischemic attack (TIA), and cerebral infarction without residual deficits; Z87.891 Personal history of nicotine dependence; Z68.31 Body mass index [BMI] 31.0-31.9, adult; Y92.89 Other specified places as the place of occurrence of the external cause
CPT/HCPCS: 10879